=== PATIENT | female | born 1950 | race Caucasian/White ===

== ENCOUNTER 2016-12-27 01:17 | Emergency (ER) | payer MEDICARE, OTHER ==
[2016-12-27] MEDS ORDERED: VITA1CAP2 PO (01:29)
[2016-12-27 05:58] VITALS: BP 148/82
[2016-12-27] MEDS ORDERED: BACTRIM 160MG/800MG DS TAB PO ONE (06:00)
[2016-12-27] MEDS ORDERED: BACT800T5 PO (06:02)
== END 2016-12-27 06:09 | disposition home or self-care (01) ==
LOC: M ED 01:17
DX: N30.00 Acute cystitis without hematuria (principal)

== ENCOUNTER → 2017-02-28 | Outpatient (REF) | payer MEDICARE, OTHER ==
[~2017-02-28] MED LIST: BACT800T5 PO; VITA1CAP2 PO
[2017-02-28 19:08] LABS: BASO % 0.4 % (0.0-1.0); EOS # 0.1 K/mm3 (0.0-0.50); EOS % 2.5 % (0.0-3.0); LARGE UNSTAINED CELL # 0.1 K/mm3 (0.0-0.4); LARGE UNSTAINED CELL % 1.6 % (0.0-4.0); LYMPH # 1.3 K/mm3 (1.5-4.5); LYMPH % 27.3 % (24.0-44.0); MEAN CORPUSCULAR HEMOGLOBIN 29.8 pg (27.0-33.0); MEAN CORPUSCULAR VOLUME 90.1 fl (80.0-96.0); MONO # 0.3 K/mm3 (0.0-0.8); MONO % 5.8 % (0.0-5.0); NEUTROPHILS # 2.9 K/mm3 (1.8-7.7); NEUTROPHILS % 62.4 % (36.0-66.0); PLATELET COUNT, AUTOMATED 248 k/mm3 (150-450); WHITE BLOOD COUNT 4.6 K/mm3 (4.0-10.0)
[2017-02-28 19:32] LABS: ALBUMIN 3.8 GM/DL (3.2-5.2); ALBUMIN/GLOBULIN RATIO 1.15 (1.00-1.93); ALKALINE PHOSPHATASE 62 U/L (45-117); ALT/SGPT 21 U/L (12-78); ANION GAP 7 MEQ/L (8-16); AST/SGOT 12 U/L (15-37); BILIRUBIN,TOTAL 0.5 MG/DL (0.2-1.0); BLOOD UREA NITROGEN 12 MG/DL (7-18); CALCIUM LEVEL 9.4 MG/DL (8.8-10.2); CARBON DIOXIDE LEVEL 29 MEQ/L (21-32); CHLORIDE LEVEL 106 MEQ/L (98-107); CHOLESTEROL LEVEL 243 MG/DL (<200); GLOMERULAR FILTRATION RATE > 60.0 (>45); GLUCOSE, FASTING 86 MG/DL (80-110); POTASSIUM SERUM 4.3 MEQ/L (3.5-5.1); SODIUM LEVEL 142 MEQ/L (136-145); TOTAL PROTEIN 7.1 GM/DL (6.4-8.2); TRIGLYCERIDES LEVEL 145 MG/DL (<150)
== END ==
LOC: M LABDRAW1 13:11
PROVIDERS: ATTEND Physician Assistant Medical
DX: R53.83 Other fatigue (principal); E78.2 Mixed hyperlipidemia; Z13.0 Encounter for screening for diseases of the blood and blood-forming organs and certain disorders involving the immune mechanism; Z13.29 Encounter for screening for other suspected endocrine disorder; Z13.220 Encounter for screening for lipoid disorders

== ENCOUNTER → 2018-03-01 | Outpatient (CLI) | payer MEDICARE, OTHER ==
[2018-03-01 15:51] LABS: BASO % 0.8 % (0.0-1.0); EOS # 0.2 10^3/uL (0.0-0.50); EOS % 3.5 % (0.0-3.0); HEMATOCRIT 41.8 % (36.0-47.0); HEMOGLOBIN 13.8 g/dl (12.0-15.5); IMMATURE GRANULOCYTE % 0.4 % (0-3.0); LYMPH # 1.7 10^3/uL (1.5-4.5); LYMPH % 32.8 % (24.0-44.0); MEAN CORPUSCULAR HEMOGLOBIN 29.1 pg (27.0-33.0); MONO # 0.5 10^3/uL (0.0-0.8); MONO % 10.1 % (0.0-5.0); NEUTROPHILS # 2.7 10^3/uL (1.8-7.7); NEUTROPHILS % 52.4 % (36.0-66.0); PLATELET COUNT, AUTOMATED 260 10^3/uL (150-450); RED BLOOD COUNT 4.75 10^6/uL (4.00-5.40); RED CELL DISTRIBUTION WIDTH 13.5 % (11.5-14.5); WHITE BLOOD COUNT 5.2 10^3/uL (4.0-10.0)
[2018-03-01 16:10] LABS: ALBUMIN/GLOBULIN RATIO 1.08 (1.00-1.93); ALKALINE PHOSPHATASE 62 U/L (45-117); ALT/SGPT 24 U/L (12-78); ANION GAP 6 MEQ/L (8-16); AST/SGOT 14 U/L (7-37); BILIRUBIN,TOTAL 0.6 MG/DL (0.2-1.0); BLOOD UREA NITROGEN 15 MG/DL (7-18); CALCIUM LEVEL 9.5 MG/DL (8.8-10.2); CARBON DIOXIDE LEVEL 28 MEQ/L (21-32); CHLORIDE LEVEL 108 MEQ/L (98-107); CHOLESTEROL LEVEL 211 MG/DL (<200); CHOLESTEROL RISK RATIO 3.014 (<5); CREATININE FOR GFR 0.64 MG/DL (0.55-1.30); FREE T4 1.05 NG/DL (0.76-1.46); GLOMERULAR FILTRATION RATE > 60.0 (>45); GLUCOSE, FASTING 82 MG/DL (70-100); HDL CHOLESTEROL 70 MG/DL (>40); LDL CHOLESTEROL 114 MG/DL (<100); NON-HDL-C 141 MG/DL; POTASSIUM SERUM 4.9 MEQ/L (3.5-5.1); SODIUM LEVEL 142 MEQ/L (136-145); THYROID STIMULATING HORMONE 0.465 uIU/ML (0.358-3.740); TOTAL PROTEIN 7.7 GM/DL (6.4-8.2); TRIGLYCERIDES LEVEL 135 MG/DL (<150)
[2018-03-02 12:09] LABS: HEP C VIRUS AB SCREEN MEDICARE 0.2 INDEX (<0.8)
== END ==
LOC: M WUC 11:12
DX: M85.641 Other cyst of bone, right hand (principal); E78.2 Mixed hyperlipidemia; Z11.3 Encounter for screening for infections with a predominantly sexual mode of transmission
CPT/HCPCS: 84443

== ENCOUNTER → 2019-01-22 | Outpatient (CLI) | payer MEDICARE, OTHER ==
[~2019-01-22] MED LIST changes: +VITA-183 PO; -VITA1CAP2 PO
[2019-01-22 20:23] LABS: BLOOD UREA NITROGEN 16 MG/DL (7-18); CALCIUM LEVEL 8.5 MG/DL (8.8-10.2); CARBON DIOXIDE LEVEL 26 MEQ/L (21-32); CHLORIDE LEVEL 109 MEQ/L (98-107); CREATININE FOR GFR 0.72 MG/DL (0.55-1.30); GLOMERULAR FILTRATION RATE > 60.0 (>45); GLUCOSE, FASTING 99 MG/DL (70-100); POTASSIUM SERUM 4.2 MEQ/L (3.5-5.1); SODIUM LEVEL 142 MEQ/L (136-145)
== END ==
LOC: M WUC 15:55
PROVIDERS: ATTEND Family Medicine
DX: D49.2 Neoplasm of unspecified behavior of bone, soft tissue, and skin (principal)

== ENCOUNTER → 2019-02-28 | Outpatient (CLI) | payer MEDICARE, OTHER ==
[2019-02-28 18:39] LABS: BASO % 0.4 % (0.0-1.0); EOS # 0.2 10^3/uL (0.0-0.5); EOS % 2.1 % (0.0-3.0); HEMATOCRIT 41.8 % (36.0-47.0); HEMOGLOBIN 13.7 g/dl (12.0-15.5); LYMPH # 1.6 10^3/uL (1.5-5.0); LYMPH % 19.1 % (24.0-44.0); MEAN CORPUSCULAR HEMOGLOBIN 28.7 pg (27.0-33.0); MEAN CORPUSCULAR HGB CONC 32.8 g/dl (32.0-36.5); MEAN CORPUSCULAR VOLUME 87.4 fl (80.0-96.0); MONO # 0.6 10^3/uL (0.0-0.8); MONO % 7.8 % (0.0-5.0); NEUTROPHILS # 5.8 10^3/uL (1.5-8.5); NEUTROPHILS % 70.2 % (36.0-66.0); PLATELET COUNT, AUTOMATED 297 10^3/uL (150-450); RED BLOOD COUNT 4.78 10^6/uL (4.00-5.40); WHITE BLOOD COUNT 8.2 10^3/uL (4.0-10.0)
[2019-02-28 18:52] LABS: ALBUMIN 3.6 GM/DL (3.2-5.2); ALT/SGPT 19 U/L (12-78); BILIRUBIN,TOTAL 0.5 MG/DL (0.2-1.0); BLOOD UREA NITROGEN 13 MG/DL (7-18); CARBON DIOXIDE LEVEL 25 MEQ/L (21-32); CHLORIDE LEVEL 108 MEQ/L (98-107); CHOLESTEROL LEVEL 201 MG/DL (<200); CREATININE FOR GFR 0.74 MG/DL (0.55-1.30); FREE T4 1.02 NG/DL (0.76-1.46); GLOMERULAR FILTRATION RATE > 60.0 (>45); GLUCOSE, FASTING 86 MG/DL (70-100); HDL CHOLESTEROL 64 MG/DL (>40); LDL CHOLESTEROL 104 MG/DL (<100); NON-HDL-C 137 MG/DL; SODIUM LEVEL 142 MEQ/L (136-145); THYROID STIMULATING HORMONE 0.526 uIU/ML (0.358-3.740); TOTAL PROTEIN 7.2 GM/DL (6.4-8.2); TRIGLYCERIDES LEVEL 164 MG/DL (<150)
[2019-02-28 18:54] LABS: TOTAL 25(OH) VITAMIN D 22.6 NG/ML (30.0-100.0)
== END ==
LOC: M SMT 13:15
PROVIDERS: ATTEND Family Medicine
DX: E78.2 Mixed hyperlipidemia (principal); E55.9 Vitamin D deficiency, unspecified; Z79.899 Other long term (current) drug therapy

== ENCOUNTER 2019-03-17 02:26 | Emergency (ER) | payer MEDICARE, OTHER ==
[~2019-03-17] VITALS: Ht 147.3 cm; Wt 77.3 kg
[2019-03-17] MEDS ORDERED: ALPR0.25 (02:38)
[2019-03-17] MEDS ORDERED: ZOCO10TA PO (02:53)
[2019-03-17] MEDS ORDERED: LEXA1TAB PO (02:53)
[2019-03-17 03:08] LABS: BASO % 0.4 % (0.0-1.0); EOS # 0.1 10^3/uL (0.0-0.5); EOS % 1.6 % (0.0-3.0); HEMATOCRIT 41.2 % (36.0-47.0); LYMPH # 2.3 10^3/uL (1.5-5.0); LYMPH % 34.4 % (24.0-44.0); MEAN CORPUSCULAR HEMOGLOBIN 29.7 pg (27.0-33.0); MEAN CORPUSCULAR VOLUME 87.5 fl (80.0-96.0); MONO # 0.7 10^3/uL (0.0-0.8); MONO % 9.7 % (0.0-5.0); NEUTROPHILS # 3.7 10^3/uL (1.5-8.5); NEUTROPHILS % 53.6 % (36.0-66.0); PLATELET COUNT, AUTOMATED 258 10^3/uL (150-450); RED BLOOD COUNT 4.71 10^6/uL (4.00-5.40); WHITE BLOOD COUNT 6.8 10^3/uL (4.0-10.0)
[2019-03-17 03:35] LABS: ALBUMIN 3.7 GM/DL (3.2-5.2); ALT/SGPT 20 U/L (12-78); BILIRUBIN,DIRECT 0.1 MG/DL (0.0-0.2); BILIRUBIN,TOTAL 0.5 MG/DL (0.2-1.0); BLOOD UREA NITROGEN 16 MG/DL (7-18); CALCIUM LEVEL 9.4 MG/DL (8.8-10.2); CARBON DIOXIDE LEVEL 26 MEQ/L (21-32); CHLORIDE LEVEL 105 MEQ/L (98-107); CK-MB VALUE MASS 2.9 NG/ML (<3.6); CPK CREATINE PHOSPHOKINASE 198 U/L (26-192); CREATININE FOR GFR 0.72 MG/DL (0.55-1.30); GLOMERULAR FILTRATION RATE > 60.0 (>45); GLUCOSE, FASTING 94 MG/DL (70-100); LIPASE 507 U/L (73-393); MB/CK RELATIVE INDEX 1.46 (< OR =4); POTASSIUM SERUM 3.5 MEQ/L (3.5-5.1); SODIUM LEVEL 140 MEQ/L (136-145); TOTAL PROTEIN 7.6 GM/DL (6.4-8.2); TROPONIN I 0.39 NG/ML (< 0.10)
[2019-03-17] MEDS ORDERED: HEPARIN DRIP 25,000 UNITS in IV 1 EA IV SCH (03:58)
[2019-03-17] MEDS ORDERED: CLOPIDOGREL 300 MG TAB (PLAVIX) PO STA (03:58)
[2019-03-17] MEDS ORDERED: HEPARIN SOD (PORCINE) 5000 UNITS/ML VIAL IV ONE (04:00)
[2019-03-17] MEDS ORDERED: ASPIRIN 325 MG TAB PO ONE (04:00)
[2019-03-17 04:32] LABS: INR 1.01
[2019-03-17 04:33] LABS: PARTIAL THROMBOPLASTIN TIME 31.6 SECONDS (25.0-38.4)
[2019-03-17 05:00] VITALS: BP 200/98
[2019-03-17] MEDS ORDERED: NITROGLYCERIN 2% OINT 1 GM *U/D* PKT TOP ONE (05:00)
--- NOTE | 2019-03-17 05:07 | REPVR ---
PROCEDURE INFORMATION: Exam: US Duplex Left Lower Extremity Veins, Limited Exam date and time: 03/17/2019 4:41 AM Clinical history: 68 years old, female; Edema, localized; Lower extremity, left; Additional info: Titoin/hemal TECHNIQUE: Imaging protocol: Real-time Duplex ultrasound of the Left Lower Extremity with 2-D ziegler scale, color Doppler flow and spectral waveform analysis with image documentation. Limited exam focused on the left lower extremity veins. COMPARISON: US Duplex, Ext,LOWER veins,unilat LEFT 12/01/2015 2:29 PM FINDINGS: Left deep veins: Unremarkable. The common femoral, femoral, proximal profunda femoral and popliteal veins are patent without thrombus. Normal Doppler waveforms. Normal compressibility and/or augmentation response. Left superficial veins: Unremarkable. Saphenofemoral junction is patent without thrombus. Soft tissues: Unremarkable. IMPRESSION: No acute findings. No evidence of deep vein thrombosis. Electronically signed by: Max Gordon On 03/17/2019 05:06:39 AM
[2019-03-17 05:32] VITALS: BP 162/74
--- NOTE | 2019-03-18 08:01 | REP ---
AP PORTABLE CHEST: 03/17/2019. Clinical history: Chest pain. Comparison: 10/03/2011. Findings: Upright chest shows the lung caceres well inflated and without infiltrate or effusion. Some emphysematous changes in the mid and upper lung zones are suggested. There is no dense consolidation or effusion. Heart is not enlarged. The aorta is calcified and tortuous. Airway intact. Bony thorax shows no focal lesion. Dextroconvex curve in the thoracic spine. Degenerative changes in the spine and shoulders. Impression: 1. 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 Electronically Signed by Ari Rivera MD 03/18/2019 09:26 A
--- NOTE | 2019-03-18 08:24 | ECGEPIP ---
[facility] - ED Test Date: 2019-03-17 Pat Name: RUDY GIBBS Department: Room: - Gender: Female Circuit Manager: : 1950 Requested By: TIFF DIAS Order Number: [id number] Reading MD: Jerrica Marlow Measurements Intervals Overgaard Rate: 75 P: 51 GA: 100 QRS: 6 QRSD: 105 T: 48 QT: 338 QTc: 380 Interpretive Statements SINUS RHYTHM WITH SHORT GA INTERVAL POSSIBLE LEFT ATRIAL ENLARGEMENT NONSPECIFIC ST & T-WAVE ABNORMALITY NO PRIOR Electronically Signed on 03-18-2019 8:23:35 EDT by Jerrica Marlow
== END 2019-03-17 05:33 | disposition short-term general hospital (02) ==
LOC: M ED 02:26
DX: I21.4 Non-ST elevation (NSTEMI) myocardial infarction (principal); E78.5 Hyperlipidemia, unspecified; F41.9 Anxiety disorder, unspecified; J44.9 Chronic obstructive pulmonary disease, unspecified; Z79.899 Other long term (current) drug therapy; Z87.891 Personal history of nicotine dependence; Z88.0 Allergy status to penicillin; Z88.8 Allergy status to other drugs, medicaments and biological substances

== ENCOUNTER → 2019-04-09 | Outpatient (CLI) | payer MEDICARE, OTHER ==
[~2019-04-09] MED LIST changes: +ALPR0.25; +LEXA1TAB PO; +ZOCO10TA PO
[2019-04-09 14:10] LABS: BASO % 0.5 % (0.0-1.0); EOS # 0.1 10^3/uL (0.0-0.5); EOS % 2.2 % (0.0-3.0); HEMATOCRIT 41.3 % (36.0-47.0); HEMOGLOBIN 13.3 g/dl (12.0-15.5); LYMPH # 1.6 10^3/uL (1.5-5.0); LYMPH % 27.4 % (24.0-44.0); MEAN CORPUSCULAR HEMOGLOBIN 29.6 pg (27.0-33.0); MEAN CORPUSCULAR HGB CONC 32.2 g/dl (32.0-36.5); MONO # 0.5 10^3/uL (0.0-0.8); MONO % 8.6 % (0.0-5.0); NEUTROPHILS # 3.6 10^3/uL (1.5-8.5); NEUTROPHILS % 61.1 % (36.0-66.0); PLATELET COUNT, AUTOMATED 263 10^3/uL (150-450); RED BLOOD COUNT 4.49 10^6/uL (4.00-5.40); WHITE BLOOD COUNT 5.8 10^3/uL (4.0-10.0)
[2019-04-09 14:29] LABS: ALBUMIN 3.7 GM/DL (3.2-5.2); ALT/SGPT 24 U/L (12-78); BILIRUBIN,TOTAL 0.7 MG/DL (0.2-1.0); BLOOD UREA NITROGEN 12 MG/DL (7-18); CALCIUM LEVEL 9.4 MG/DL (8.8-10.2); CARBON DIOXIDE LEVEL 29 MEQ/L (21-32); CHLORIDE LEVEL 107 MEQ/L (98-107); CHOLESTEROL LEVEL 196 MG/DL (<200); FREE T4 1.04 NG/DL (0.76-1.46); GLOMERULAR FILTRATION RATE > 60.0 (>45); GLUCOSE, FASTING 89 MG/DL (70-100); HDL CHOLESTEROL 71 MG/DL (>40); LDL CHOLESTEROL 97 MG/DL (<100); NON-HDL-C 125 MG/DL; POTASSIUM SERUM 4.7 MEQ/L (3.5-5.1); SODIUM LEVEL 143 MEQ/L (136-145); THYROID STIMULATING HORMONE 0.788 uIU/ML (0.358-3.740); TOTAL PROTEIN 7.3 GM/DL (6.4-8.2); TRIGLYCERIDES LEVEL 140 MG/DL (<150)
== END ==
LOC: M SMT 10:27
PROVIDERS: ATTEND Family Medicine
DX: I21.4 Non-ST elevation (NSTEMI) myocardial infarction (principal)

== ENCOUNTER → 2019-06-20 | Outpatient (CLI) | payer MEDICARE, OTHER ==
[2019-06-20 13:40] LABS: BASO % 0.6 % (0.0-1.0); EOS # 0.2 10^3/uL (0.0-0.5); HEMATOCRIT 42.7 % (36.0-47.0); HEMOGLOBIN 13.9 g/dl (12.0-15.5); LYMPH # 1.8 10^3/uL (1.5-5.0); LYMPH % 27.6 % (24.0-44.0); MEAN CORPUSCULAR HEMOGLOBIN 29.3 pg (27.0-33.0); MEAN CORPUSCULAR HGB CONC 32.6 g/dl (32.0-36.5); MEAN CORPUSCULAR VOLUME 89.9 fl (80.0-96.0); MONO # 0.6 10^3/uL (0.0-0.8); MONO % 8.9 % (0.0-5.0); NEUTROPHILS % 59.7 % (36.0-66.0); PLATELET COUNT, AUTOMATED 256 10^3/uL (150-450); RED BLOOD COUNT 4.75 10^6/uL (4.00-5.40); WHITE BLOOD COUNT 6.6 10^3/uL (4.0-10.0)
[2019-06-20 14:01] LABS: ALBUMIN 3.8 GM/DL (3.2-5.2); ALT/SGPT 24 U/L (12-78); BILIRUBIN,TOTAL 0.6 MG/DL (0.2-1.0); BLOOD UREA NITROGEN 15 MG/DL (7-18); CALCIUM LEVEL 9.2 MG/DL (8.8-10.2); CARBON DIOXIDE LEVEL 27 MEQ/L (21-32); CHLORIDE LEVEL 107 MEQ/L (98-107); CHOLESTEROL LEVEL 221 MG/DL (<200); CHOLESTEROL RISK RATIO 3.202 (<5); CREATININE FOR GFR 0.77 MG/DL (0.55-1.30); GLOMERULAR FILTRATION RATE > 60.0 (>45); GLUCOSE, FASTING 80 MG/DL (70-100); HDL CHOLESTEROL 69 MG/DL (>40); LDL CHOLESTEROL 121 MG/DL (<100); NON-HDL-C 152 MG/DL; POTASSIUM SERUM 4.9 MEQ/L (3.5-5.1); SODIUM LEVEL 140 MEQ/L (136-145); TOTAL PROTEIN 7.3 GM/DL (6.4-8.2); TRIGLYCERIDES LEVEL 157 MG/DL (<150)
[2019-06-20 14:08] LABS: TOTAL 25(OH) VITAMIN D 31.3 NG/ML (30.0-100.0)
== END ==
LOC: M PLALAB 11:02
PROVIDERS: ATTEND Family Medicine
DX: E55.9 Vitamin D deficiency, unspecified (principal); I10 Essential (primary) hypertension; Z79.899 Other long term (current) drug therapy

== ENCOUNTER → 2019-08-28 | Outpatient (REF) | payer MEDICARE, OTHER | LOC: M LAB REF 17:32 | PROVIDERS: ATTEND Family Medicine | DX: R19.5 Other fecal abnormalities (principal) ==

== ENCOUNTER 2019-09-05 07:03 | Day surgery (SDC) | payer MEDICARE, OTHER ==
[~2019-09-05] VITALS: Ht 147.3 cm; Wt 76.7 kg
[~2019-09-05 07:03] MED LIST changes: +B-122500 PO; +LR 1,000 ML IV ONE; +MAGN250T7 PO; +METO25TA4 PO; +VITAD1000T PO
[2019-09-05 07:42] LABS: HEMATOCRIT 42.6 % (36.0-47.0); HEMOGLOBIN 13.9 g/dl (12.0-15.5); MEAN CORPUSCULAR HEMOGLOBIN 29.4 pg (27.0-33.0); MEAN CORPUSCULAR HGB CONC 32.6 g/dl (32.0-36.5); MEAN CORPUSCULAR VOLUME 90.3 fl (80.0-96.0); PLATELET COUNT, AUTOMATED 246 10^3/uL (150-450); RED BLOOD COUNT 4.72 10^6/uL (4.00-5.40); WHITE BLOOD COUNT 5.9 10^3/uL (4.0-10.0)
[2019-09-05] MEDS ORDERED: LIDOCAINE 1% SDV INJ 30 ML VIAL As Ordered ONE (09:49)
[2019-09-05] MEDS ORDERED: fentaNYL 100 MCG/2 ML INJECTION (J3010) As Ordered ONE (09:56)
[2019-09-05] MEDS ORDERED: MIDAZOLAM INJ 2 MG/2 ML VIAL (J2250) As Ordered ONE (09:56)
[2019-09-05] MEDS ORDERED: LIDOCAINE 2% INJ 100 MG/5 ML SDV (FOR ANES.) As Ordered ONE (09:56)
[2019-09-05] MEDS ORDERED: propofoL 200 MG/20 ML VIAL As Ordered ONE (09:56)
[2019-09-05] MEDS ORDERED: ePHEDrine SULFATE 25 MG/5 ML(5MG/ML) SYRINGE As Ordered ONE (10:08)
[2019-09-05] MEDS ORDERED: fentaNYL 100 MCG/2 ML INJECTION (J3010) IV PRN (10:45)
[2019-09-05] MEDS ORDERED: LR 1,000 ML IV SCH ×2 (10:45→11:45)
[2019-09-05 10:55] VITALS: BP 143/67
[2019-09-05] MEDS ORDERED: ACETAMINOPHEN 500 MG TAB PO ONE (11:45)
--- NOTE | 2019-09-05 12:27 | RO ---
DATE OF OPERATION: 09/05/2019 PREOPERATIVE DIAGNOSIS: Postmenopausal bleeding. POSTOPERATIVE DIAGNOSIS: Postmenopausal bleeding. PROCEDURES: Hysteroscopy, dilation and curettage (D and C). SURGEON: Joel Fonseca MD CONTENT MANAGEMENT SPECIALIST: ANESTHESIA: Local with sedation. ESTIMATED BLOOD LOSS: Minimal. FINDINGS: Normal-appearing endometrial cavity. DESCRIPTION OF PROCEDURE: Operative summary: The patient was taken to the operating room, where intravenous (IV) sedation given. She was prepped and draped in sterile fashion in the dorsal lithotomy position. A speculum was placed in the vagina. The anterior lip of the cervix was grasped with a tenaculum. The cervix was injected circumferentially with 20 mL of 1% lidocaine. The cervix was dilated with Taper dilators. A diagnostic hysteroscope using normal saline as the distention medium was placed through the internal os. Visualization of the endometrial cavity revealed the findings noted above. The hysteroscope was removed. Sharp curettage was performed. A specimen of endometrial curettings was sent to pathology. All instruments were removed. Sponge and instrument counts were correct.
== END 2019-09-05 11:54 | disposition home or self-care (01) ==
LOC: M SDC 07:03
PROVIDERS: ATTEND Specialist
DX: N95.0 Postmenopausal bleeding (principal); I10 Essential (primary) hypertension; E78.5 Hyperlipidemia, unspecified; I25.2 Old myocardial infarction; G47.30 Sleep apnea, unspecified; K44.9 Diaphragmatic hernia without obstruction or gangrene; M85.80 Other specified disorders of bone density and structure, unspecified site; F41.9 Anxiety disorder, unspecified; K21.9 Gastro-esophageal reflux disease without esophagitis; Z79.899 Other long term (current) drug therapy; Z88.0 Allergy status to penicillin; Z88.1 Allergy status to other antibiotic agents
CPT/HCPCS: 58558; 85027; 88305; J2250; J3010

== ENCOUNTER → 2020-01-29 | Outpatient (CLI) | payer MEDICARE, OTHER ==
[~2020-01-29] MED LIST changes: +D31000TA2 PO; -LR 1,000 ML IV ONE; -VITAD1000T PO
--- NOTE | 2020-02-28 14:52 | SLEEPCENT ---
DATE: 01/29/2020 ORDERED BY: Jesica Sifuentes Nocturnal polysomnography was performed for evaluation of sleep physiology in this patient with a prior history of obstructive sleep apnea syndrome. There was 7 hours and 44 minutes of data reviewed. There was 231 minutes of sleep identified. Sleep latency was prolonged at 158.5 minutes. REM sleep was not achieved. Sleep architecture showed severe fragmentation and poor progression. Overall sleep efficiency was 50.4%. The electrocardiogram showed what appeared to be a sinus rhythm with average heart rate of 60 beats per minute. EEG showed normal waveforms for wake and sleep. There were 237 respiratory events identified of 10 seconds in duration or greater for an apnea- hypopnea index of 61.6. The events were obstructive, not exclusive to sleep stage nor body posture. Arousals from respiratory events occurred 10.4 times per hour, and oxygen desaturations were seen into the 80s. There was some limb activity, but arousals primarily related to limb events were few. IMPRESSION: Obstructive sleep apnea syndrome (G47.33). Apnea-hypopnea index 61.6. RECOMMENDATION: The patient should be encouraged to return to the sleep disorder center at his earlier convenience for pressure therapy. In the interim, alcohol and sedative avoidance should be practiced and caution exercised during the operation of motor vehicles. LUCIAD
== END ==
LOC: M SLEEP 20:00
PROVIDERS: ATTEND Nurse Practitioner Adult Health
DX: G47.33 Obstructive sleep apnea (adult) (pediatric) (principal)

== ENCOUNTER → 2020-02-19 | Outpatient (CLI) | payer MEDICARE, OTHER ==
--- NOTE | 2020-02-22 08:55 | SLEEPCENT ---
DATE: 02/19/2020 ORDERED BY: Jesica Sifuentes Nocturnal polysomnography was performed in an effort to titrate pressure therapy in this patient with severe obstructive sleep apnea syndrome, apnea-hypopnea index 61.6. For testing, a ResMed Mirage FX nasal mask of standard size was used. There was 4 cm of water pressure applied to the circuit, and the lights were extinguished. There was 7 hours and 23 minutes of data reviewed. There was 259 minutes of sleep identified. Sleep latency was prolonged at 94.5 minutes. REM latency was very prolonged at 310.5 minutes. Sleep architecture was poor. There was one REM cycle late in the study. Overall sleep efficiency was 59.1%. The patient's electrocardiogram showed a sinus rhythm with occasional premature ventricular contraction (PVC). The average heart rate 58 beats per minute. EEG showed coarsening in background, otherwise normal waveforms for wake and sleep. There were no focal events. Respiratory events were fully palliated with CPAP at a pressure of +5. Early in the study the patient had very frequent arousals, which appeared to be related to limb activity. Limb movement arousal index calculates at 40.5. IMPRESSION: 1. Obstructive sleep apnea syndrome (G47.33). 2. Possible periodic limb movement disorder (G47.61). Limb movement arousal index 40.5. RECOMMENDATION: Initiation of CPAP at a pressure of 5 cm would appear to be sufficient to overcome airway obstruction. Given the severity of the patient's disease, close clinical followup is recommended. Should sleep symptoms persist, re-evaluation of the efficacy of pressure therapy would be prudent, and consideration could be given to interventions to reduce the frequency of arousal from the limb events identified early in the study. MARIBELL
== END ==
LOC: M SLEEP 20:00
PROVIDERS: ATTEND Nurse Practitioner Adult Health
DX: G47.33 Obstructive sleep apnea (adult) (pediatric) (principal)

== ENCOUNTER → 2020-03-04 | Outpatient (CLI) | payer MEDICARE, OTHER ==
[2020-03-04 13:37] LABS: BASO % 0.8 % (0.0-1.0); EOS # 0.2 10^3/uL (0.0-0.5); EOS % 4.5 % (0.0-3.0); HEMATOCRIT 41.9 % (36.0-47.0); HEMOGLOBIN 13.5 g/dl (12.0-15.5); LYMPH # 1.7 10^3/uL (1.5-5.0); LYMPH % 31.5 % (24.0-44.0); MEAN CORPUSCULAR HEMOGLOBIN 29.7 pg (27.0-33.0); MEAN CORPUSCULAR HGB CONC 32.2 g/dl (32.0-36.5); MEAN CORPUSCULAR VOLUME 92.3 fl (80.0-96.0); MONO # 0.5 10^3/uL (0.0-0.8); MONO % 10.2 % (0.0-5.0); NEUTROPHILS # 2.8 10^3/uL (1.5-8.5); NEUTROPHILS % 52.6 % (36.0-66.0); PLATELET COUNT, AUTOMATED 245 10^3/uL (150-450); RED BLOOD COUNT 4.54 10^6/uL (4.00-5.40); WHITE BLOOD COUNT 5.3 10^3/uL (4.0-10.0)
[2020-03-04 13:57] LABS: ALBUMIN 3.5 GM/DL (3.2-5.2); ALT/SGPT 24 U/L (12-78); BILIRUBIN,TOTAL 0.6 MG/DL (0.2-1.0); BLOOD UREA NITROGEN 16 MG/DL (7-18); CALCIUM LEVEL 9.1 MG/DL (8.8-10.2); CARBON DIOXIDE LEVEL 29 MEQ/L (21-32); CHLORIDE LEVEL 108 MEQ/L (98-107); CHOLESTEROL LEVEL 231 MG/DL (<200); CHOLESTEROL RISK RATIO 3.447 (<5); CREATININE FOR GFR 0.66 MG/DL (0.55-1.30); GLOMERULAR FILTRATION RATE > 60.0 (>39); GLUCOSE, FASTING 84 MG/DL (70-100); HDL CHOLESTEROL 67 MG/DL (>40); LDL CHOLESTEROL 130 MG/DL (<100); NON-HDL-C 164 MG/DL; POTASSIUM SERUM 3.9 MEQ/L (3.5-5.1); SODIUM LEVEL 141 MEQ/L (136-145); TOTAL 25(OH) VITAMIN D 29.4 NG/ML (30.0-100.0); TOTAL PROTEIN 7.1 GM/DL (6.4-8.2); TRIGLYCERIDES LEVEL 169 MG/DL (<150)
== END ==
LOC: M PLALAB 10:03
PROVIDERS: ATTEND Family Medicine
DX: E55.9 Vitamin D deficiency, unspecified (principal); I10 Essential (primary) hypertension; Z79.899 Other long term (current) drug therapy

== ENCOUNTER → 2021-04-02 | Outpatient (CLI) | payer MEDICARE, OTHER ==
[2021-04-02 14:19] LABS: BASO % 0.5 % (0.0-1.0); EOS # 0.2 10^3/uL (0.0-0.5); EOS % 3.6 % (0.0-3.0); HEMATOCRIT 42.1 % (36.0-47.0); HEMOGLOBIN 13.7 g/dl (12.0-15.5); LYMPH # 1.6 10^3/uL (1.5-5.0); LYMPH % 27.2 % (24.0-44.0); MEAN CORPUSCULAR HEMOGLOBIN 29.1 pg (27.0-33.0); MEAN CORPUSCULAR HGB CONC 32.5 g/dl (32.0-36.5); MEAN CORPUSCULAR VOLUME 89.6 fl (80.0-96.0); MONO # 0.5 10^3/uL (0.0-0.8); MONO % 9.2 % (2.0-8.0); NEUTROPHILS # 3.5 10^3/uL (1.5-8.5); NEUTROPHILS % 59.2 % (36.0-66.0); PLATELET COUNT, AUTOMATED 259 10^3/uL (150-450); WHITE BLOOD COUNT 5.9 10^3/uL (4.0-10.0)
[2021-04-02 14:40] LABS: APPEARANCE, URINE CLEAR (CLEAR); BACTERIA, URINE AUTO NEGATIVE (NEGATIVE); BILIRUBIN, URINE AUTO NEGATIVE (NEGATIVE); BLOOD, URINE BLOOD 2+ (NEGATIVE); COLOR, URINE YELLOW (YELLOW); GLUCOSE, URINE (UA) AUTO NEGATIVE (NEGATIVE); KETONE, URINE AUTO NEGATIVE (NEGATIVE); LEUKOCYTE ESTERASE, URINE AUTO NEGATIVE (NEGATIVE); MUCUS, URINE SMALL (NEGATIVE); NITRITE, URINE AUTO NEGATIVE (NEGATIVE); PROTEIN, URINE AUTO NEGATIVE (NEGATIVE); RBC, URINE AUTO 10 /HPF (0-3); SPECIFIC GRAVITY URINE AUTO 1.021 (1.002-1.035); SQUAMOUS EPITHELIAL CELL UR AU 1 /HPF (0-6); UROBILINOGEN, URINE AUTO 0.2 mg/dL (0.0-2.0); WBC, URINE AUTO 2 /HPF (0-3)
[2021-04-02 14:52] LABS: ALBUMIN 3.4 GM/DL (3.2-5.2); ALT/SGPT 18 U/L (12-78); BILIRUBIN,TOTAL 0.5 MG/DL (0.2-1.0); BLOOD UREA NITROGEN 17 MG/DL (7-18); CALCIUM LEVEL 9.5 MG/DL (8.8-10.2); CARBON DIOXIDE LEVEL 27 MEQ/L (21-32); CHLORIDE LEVEL 108 MEQ/L (98-107); CHOLESTEROL LEVEL 199 MG/DL (<200); CHOLESTEROL RISK RATIO 3.431 (<5); CREATININE FOR GFR 0.68 MG/DL (0.55-1.30); FREE T4 0.99 NG/DL (0.76-1.46); GLOMERULAR FILTRATION RATE > 60.0 (>39); GLUCOSE, FASTING 87 MG/DL (70-100); HDL CHOLESTEROL 58 MG/DL (>40); LDL CHOLESTEROL 108 MG/DL (<100); NON-HDL-C 141 MG/DL; POTASSIUM SERUM 4.3 MEQ/L (3.5-5.1); SODIUM LEVEL 139 MEQ/L (136-145); TOTAL PROTEIN 6.9 GM/DL (6.4-8.2); TRIGLYCERIDES LEVEL 165 MG/DL (<150)
[2021-04-02 14:53] LABS: TOTAL 25(OH) VITAMIN D 31.9 NG/ML (30.0-100.0)
== END ==
LOC: M PLALAB 10:39
PROVIDERS: ATTEND Family Medicine
DX: I25.2 Old myocardial infarction (principal); I10 Essential (primary) hypertension; E55.9 Vitamin D deficiency, unspecified; R30.0 Dysuria; Z79.899 Other long term (current) drug therapy

== ENCOUNTER → 2021-04-07 | Outpatient (REF) | payer MEDICARE, OTHER ==
[2021-04-07 18:03] LABS: APPEARANCE, URINE CLEAR (CLEAR); BACTERIA, URINE AUTO NEGATIVE (NEGATIVE); BILIRUBIN, URINE AUTO NEGATIVE (NEGATIVE); BLOOD, URINE BLOOD 2+ (NEGATIVE); COLOR, URINE YELLOW (YELLOW); GLUCOSE, URINE (UA) AUTO NEGATIVE (NEGATIVE); KETONE, URINE AUTO NEGATIVE (NEGATIVE); LEUKOCYTE ESTERASE, URINE AUTO NEGATIVE (NEGATIVE); NITRITE, URINE AUTO NEGATIVE (NEGATIVE); PROTEIN, URINE AUTO NEGATIVE (NEGATIVE); RBC, URINE AUTO 5 /HPF (0-3); SPECIFIC GRAVITY URINE AUTO 1.016 (1.002-1.035); SQUAMOUS EPITHELIAL CELL UR AU 0 /HPF (0-6); UROBILINOGEN, URINE AUTO 0.2 mg/dL (0.0-2.0); WBC, URINE AUTO 0 /HPF (0-3)
== END ==
LOC: M LAB REF 17:19
PROVIDERS: ATTEND Family Medicine
DX: R30.0 Dysuria (principal)

== ENCOUNTER → 2021-04-12 | Outpatient (CLI) | payer MEDICARE, OTHER ==
--- NOTE | 2021-04-12 14:21 | REPMRS ---
Patient History The patient states she has not had a clinical breast exam in over a year. Patient is postmenopausal and has history of other cancer at age 70. No known family history of cancer. Patient states no breast complaints today. Patient has signed MRS History Sheet. Digital Woman Screen Mammo: April 12, 2021 - Exam #: [id number] Bilateral CC and MLO view(s) were taken. Technologist: Monica Orellana, Technologist Prior study comparison: April 09, 2018, bilateral digital mammo screening bilat, performed at [facility]. April 05, 2017, bilateral digital mammo screening bilat, performed at [facility]. FINDINGS: There are scattered fibroglandular densities. Screening. Digital screening (2D) mammography was performed bilaterally in the CC and MLO projections. Additionally, breast tomosynthesis (3D mammography) was performed bilaterally in the CC and MLO projections. Todays exam was compared to the prior exam/exams. By history, the patient has no complaints of a palpable breast abnormality or other significant breast complaints. The Volpara volumetric breast density category is B, there are scattered areas of fibroglandular densities. The breasts are unchanged in size and shape. There are no kristie-soft tissue densities or spiculated masses. There is no internal architectural distortion. There are no suspicious kristie-calcific clusters. Skin thickening or nipple retraction is not present. IMPRESSION: BI-RADS Category 2- Benign Findings. There is no evidence of malignant alteration of the breasts. Followup examination recommended in one year. The lifetime Tyrer-Cuzick score is 4.1% This mammogram was read with the assistance of [employer],an FDA approved computer aided detection system for mammography. Negative x-ray reports should not delay surgical consultation if a dominant or clinically suspicious mass is present. Not all breast cancers can be identified by mammography. Therefore, we recommend that you continue to perform regular breast self-examination and physical examination and then promptly contact your physician of any concerns or changes. Adenosis and dense breasts may obscure an underlying neoplasm. No significant changes when compared with prior studies. Assessment: BI-RADS/ACR category 2 mammogram. Benign Findings. Recommendation Routine screening mammogram of both breasts in 1 year. Electronically Signed By: Sarabjit Silverio MD 04/12/21 [id number]
== END ==
LOC: M WHC 12:38
PROVIDERS: ATTEND Family Medicine
DX: Z12.31 Encounter for screening mammogram for malignant neoplasm of breast (principal); Z78.0 Asymptomatic menopausal state; Z85.9 Personal history of malignant neoplasm, unspecified

== ENCOUNTER → 2022-01-20 | Outpatient (REF) | payer MEDICARE, OTHER ==
[~2022-01-20] MED LIST changes: -D31000TA2 PO; +SIMV-252 PO; +VITA100093 PO; -ZOCO10TA PO
[2022-01-20 17:41] LABS: APPEARANCE, URINE CLEAR (CLEAR); BACTERIA, URINE AUTO NEGATIVE (NEGATIVE); BILIRUBIN, URINE AUTO NEGATIVE (NEGATIVE); BLOOD, URINE BLOOD 1+ (NEGATIVE); COLOR, URINE YELLOW (YELLOW); GLUCOSE, URINE (UA) AUTO NEGATIVE (NEGATIVE); KETONE, URINE AUTO NEGATIVE (NEGATIVE); LEUKOCYTE ESTERASE, URINE AUTO NEGATIVE (NEGATIVE); MUCUS, URINE SMALL (NEGATIVE); NITRITE, URINE AUTO NEGATIVE (NEGATIVE); PROTEIN, URINE AUTO NEGATIVE (NEGATIVE); RBC, URINE AUTO 7 /HPF (0-3); SPECIFIC GRAVITY URINE AUTO 1.017 (1.002-1.035); SQUAMOUS EPITHELIAL CELL UR AU 0 /HPF (0-6); UROBILINOGEN, URINE AUTO 0.2 mg/dL (0.0-2.0); WBC, URINE AUTO 0 /HPF (0-3)
== END ==
LOC: M SMT 16:44
PROVIDERS: ATTEND Physician Assistant
DX: R31.9 Hematuria, unspecified (principal)

== ENCOUNTER → 2022-01-25 | Outpatient (CLI) | payer MEDICARE, OTHER ==
[2022-01-25 13:56] LABS: BLOOD UREA NITROGEN 14 MG/DL (7-18); CALCIUM LEVEL 9.5 MG/DL (8.8-10.2); CARBON DIOXIDE LEVEL 29 MEQ/L (21-32); CHLORIDE LEVEL 110 MEQ/L (98-107); CREATININE FOR GFR 0.64 MG/DL (0.55-1.30); GLOMERULAR FILTRATION RATE > 60.0 (>39); GLUCOSE, FASTING 86 MG/DL (70-100); POTASSIUM SERUM 5.6 MEQ/L (3.5-5.1); SODIUM LEVEL 143 MEQ/L (136-145)
== END ==
LOC: M PLALAB 11:04
PROVIDERS: ATTEND Physician Assistant
DX: R31.9 Hematuria, unspecified (principal)

== ENCOUNTER → 2022-01-28 | Outpatient (REF) | payer MEDICARE, OTHER ==
[2022-01-28 17:56] LABS: APPEARANCE, URINE MANUAL CLEAR (CLEAR); COLOR, URINE MANUAL LT YELLOW (YELLOW)
[2022-01-28 17:57] LABS: BILIRUBIN, URINE MANUAL NEGATIVE (NEGATIVE); GLUCOSE, URINE (UA) MANUAL NEGATIVE (NEGATIVE); KETONE, URINE MANUAL NEGATIVE (NEGATIVE); PROTEIN, URINE MANUAL NEGATIVE (NEGATIVE); UROBILINOGEN, URINE MANUAL NORMAL (NORMAL)
[2022-01-28 17:58] LABS: BLOOD URINE MANUAL POSITIVE (NEGATIVE); LEUKOCYTE ESTERASE, URINE MAN NEGATIVE (NEGATIVE); NITRITE, URINE MANUAL NEGATIVE (NEGATIVE)
[2022-01-28 18:09] LABS: BACTERIA, URINE NONE SEEN; HYALINE CAST, URINE NONE SEEN /lpf (0-1); RBC, URINE NONE SEEN /hpf (0-3); SQUAMOUS EPITHELIAL CELL URINE NONE SEEN /hpf (SMALL AMT); WBC, URINE NONE SEEN /hpf (0-3)
== END ==
LOC: M SMT 16:50
PROVIDERS: ATTEND Urology
DX: R31.29 Other microscopic hematuria (principal)

== ENCOUNTER → 2022-02-17 | Outpatient (CLI) | payer MEDICARE, OTHER ==
[2022-02-17 17:39] LABS: BASO % 0.7 % (0.0-1.0); EOS # 0.2 10^3/uL (0.0-0.5); EOS % 2.9 % (0.0-3.0); HEMATOCRIT 41.3 % (36.0-47.0); HEMOGLOBIN 13.6 g/dl (12.0-15.5); LYMPH # 1.7 10^3/uL (1.5-5.0); LYMPH % 28.8 % (24.0-44.0); MEAN CORPUSCULAR HEMOGLOBIN 29.7 pg (27.0-33.0); MEAN CORPUSCULAR HGB CONC 32.9 g/dl (32.0-36.5); MEAN CORPUSCULAR VOLUME 90.2 fl (80.0-96.0); MONO # 0.5 10^3/uL (0.0-0.8); MONO % 8.9 % (2.0-8.0); NEUTROPHILS # 3.4 10^3/uL (1.5-8.5); NEUTROPHILS % 58.5 % (36.0-66.0); PLATELET COUNT, AUTOMATED 243 10^3/uL (150-450); RED BLOOD COUNT 4.58 10^6/uL (4.00-5.40); WHITE BLOOD COUNT 5.8 10^3/uL (4.0-10.0)
[2022-02-17 20:15] LABS: TOTAL 25(OH) VITAMIN D 28.9 NG/ML (30.0-100.0)
[2022-02-22 23:07] LABS: IgG P18 AB Absent (.); IgG P23 AB Absent (.); IgG P28 AB Absent (.); IgG P30 AB Absent (.); IgG P39 AB Absent (.); IgG P41 AB Absent (.); IgG P45 AB Absent (.); IgG P66 AB Absent (.); IgG P93 AB Absent (.); IgM P23 AB Absent (.); IgM P39 AB Absent (.); IgM P41 AB Absent (.); LYME IgG WB INTERPRETATION Negative (.); LYME IgM WB INTERPRETATION Negative (.)
== END ==
LOC: M PLALAB 14:37
PROVIDERS: ATTEND Family Medicine
DX: R20.2 Paresthesia of skin (principal); Z79.899 Other long term (current) drug therapy

== ENCOUNTER → 2022-02-23 | Outpatient (REF) | payer MEDICARE, OTHER | LOC: M PLALAB 15:01 | PROVIDERS: ATTEND Family Medicine | DX: R20.2 Paresthesia of skin (principal) ==

== ENCOUNTER → 2022-03-22 | Outpatient (REF) | payer MEDICARE, OTHER | LOC: M LAB REF 17:30 | PROVIDERS: ATTEND Family Medicine | DX: N76.0 Acute vaginitis (principal) ==

== ENCOUNTER → 2022-03-26 | Outpatient (CLI) | payer MEDICARE, OTHER ==
[2022-03-26 13:54] LABS: BLOOD UREA NITROGEN 15 MG/DL (7-18); C REACTIVE PROTEIN QUANTITATIV 0.51 MG/DL (0.00-0.30); CREATININE FOR GFR 0.71 MG/DL (0.55-1.30); GLOMERULAR FILTRATION RATE > 60.0 (>39); RHEUMATOID FACTOR QUANT < 10.0 IU/ML (<15.0)
[2022-03-29 12:09] LABS: ANTINUCLEAR ANTIBODIES DIRECT Negative (Negative)
== END ==
LOC: M LAB 12:47
PROVIDERS: ATTEND Physical Medicine & Rehabilitation
DX: M51.36 Other intervertebral disc degeneration, lumbar region (principal)

== ENCOUNTER → 2022-04-11 | Outpatient (CLI) | payer MEDICARE, OTHER ==
[2022-04-11 13:03] LABS: BASO % 0.5 % (0.0-1.0); EOS # 0.1 10^3/uL (0.0-0.5); EOS % 1.9 % (0.0-3.0); HEMATOCRIT 40.3 % (36.0-47.0); HEMOGLOBIN 13.3 g/dl (12.0-15.5); LYMPH # 1.8 10^3/uL (1.5-5.0); MEAN CORPUSCULAR HEMOGLOBIN 29.5 pg (27.0-33.0); MEAN CORPUSCULAR VOLUME 89.4 fl (80.0-96.0); MONO # 0.5 10^3/uL (0.0-0.8); MONO % 8.7 % (2.0-8.0); NEUTROPHILS # 3.3 10^3/uL (1.5-8.5); NEUTROPHILS % 57.7 % (36.0-66.0); PLATELET COUNT, AUTOMATED 247 10^3/uL (150-450); RED BLOOD COUNT 4.51 10^6/uL (4.00-5.40); WHITE BLOOD COUNT 5.8 10^3/uL (4.0-10.0)
[2022-04-11 13:52] LABS: ALBUMIN 3.4 GM/DL (3.2-5.2); ALKALINE PHOSPHATASE 72 U/L (45-117); ALT/SGPT 19 U/L (12-78); AST/SGOT 11 U/L (7-37); BILIRUBIN,TOTAL 0.7 MG/DL (0.2-1.0); BLOOD UREA NITROGEN 14 MG/DL (7-18); CALCIUM LEVEL 9.2 MG/DL (8.8-10.2); CARBON DIOXIDE LEVEL 29 MEQ/L (21-32); CHLORIDE LEVEL 105 MEQ/L (98-107); CHOLESTEROL LEVEL 202 MG/DL (<200); CREATININE FOR GFR 0.64 MG/DL (0.55-1.30); GLOMERULAR FILTRATION RATE > 60.0 (>39); GLUCOSE, FASTING 93 MG/DL (70-100); HDL CHOLESTEROL 66 MG/DL (>40); LDL CHOLESTEROL 111 MG/DL (<100); NON-HDL-C 136 MG/DL; POTASSIUM SERUM 4.1 MEQ/L (3.5-5.1); SODIUM LEVEL 137 MEQ/L (136-145); THYROID STIMULATING HORMONE 0.775 uIU/ML (0.358-3.740); TOTAL PROTEIN 7.3 GM/DL (6.4-8.2); TRIGLYCERIDES LEVEL 126 MG/DL (<150)
[2022-04-11 14:24] LABS: TOTAL 25(OH) VITAMIN D 30.7 NG/ML (30.0-100.0)
== END ==
LOC: M LAB 12:04
PROVIDERS: ATTEND Family Medicine
DX: E55.9 Vitamin D deficiency, unspecified (principal); I10 Essential (primary) hypertension; E78.2 Mixed hyperlipidemia; Z79.899 Other long term (current) drug therapy

== ENCOUNTER → 2022-04-11 | Outpatient (CLI) | payer MEDICARE, OTHER | LOC: M LAB 12:00 | PROVIDERS: ATTEND Physical Medicine & Rehabilitation | DX: M51.36 Other intervertebral disc degeneration, lumbar region (principal); M47.896 Other spondylosis, lumbar region ==

== ENCOUNTER → 2022-05-17 | Outpatient (CLI) | payer MEDICARE, OTHER | LOC: M WHC 15:25 | PROVIDERS: ATTEND Nurse Practitioner Adult Health | DX: Z12.31 Encounter for screening mammogram for malignant neoplasm of breast (principal) ==

== ENCOUNTER 2022-06-03 14:24 | Emergency (ER) | payer MEDICARE, OTHER ==
[~2022-06-03] VITALS: Ht 147.3 cm; Wt 75.9 kg
[2022-06-03 18:01] VITALS: BP 151/68
== END 2022-06-03 18:01 | disposition home or self-care (01) ==
LOC: M ED 14:24
DX: S93.402A Sprain of unspecified ligament of left ankle, initial encounter (principal); X50.1XXA Overexertion from prolonged static or awkward postures, initial encounter; Y92.099 Unspecified place in other non-institutional residence as the place of occurrence of the external cause; M77.32 Calcaneal spur, left foot; Z79.899 Other long term (current) drug therapy; Z88.0 Allergy status to penicillin; Z88.1 Allergy status to other antibiotic agents; Z88.8 Allergy status to other drugs, medicaments and biological substances

== ENCOUNTER 2022-08-10 00:51 | Emergency (ER) | payer MEDICARE, OTHER ==
[~2022-08-10] VITALS: Ht 147.3 cm; Wt 74.8 kg
[2022-08-10 00:55] VITALS: BP 142/65
[2022-08-10 03:53] LABS: BASO % 0.5 % (0.0-1.0); EOS # 0.1 10^3/uL (0.0-0.5); EOS % 1.6 % (0.0-3.0); HEMATOCRIT 39.5 % (36.0-47.0); HEMOGLOBIN 12.9 g/dl (12.0-15.5); LYMPH # 2.4 10^3/uL (1.5-5.0); LYMPH % 28.4 % (24.0-44.0); MEAN CORPUSCULAR HEMOGLOBIN 29.2 pg (27.0-33.0); MEAN CORPUSCULAR HGB CONC 32.7 g/dl (32.0-36.5); MEAN CORPUSCULAR VOLUME 89.4 fl (80.0-96.0); MONO # 0.6 10^3/uL (0.0-0.8); MONO % 7.4 % (2.0-8.0); NEUTROPHILS # 5.1 10^3/uL (1.5-8.5); NEUTROPHILS % 61.9 % (36.0-66.0); PLATELET COUNT, AUTOMATED 262 10^3/uL (150-450); RED BLOOD COUNT 4.42 10^6/uL (4.00-5.40); WHITE BLOOD COUNT 8.3 10^3/uL (4.0-10.0)
[2022-08-10 04:18] LABS: INR 0.91; PROTHROMBIN TIME 12.4 SECONDS (12.5-14.5)
[2022-08-10 04:19] LABS: PARTIAL THROMBOPLASTIN TIME 30.9 SECONDS (24.8-34.2)
[2022-08-10 04:35] LABS: BLOOD UREA NITROGEN 17 MG/DL (9-23); CALCIUM LEVEL 9.3 MG/DL (8.3-10.6); CARBON DIOXIDE LEVEL 28 MMOL/L (20-31); CHLORIDE LEVEL 104 MMOL/L (98-107); CREATININE FOR GFR 0.56 MG/DL (0.55-1.30); GLOMERULAR FILTRATION RATE > 60.0 (>39); GLUCOSE, FASTING 89 MG/DL (74-106); POTASSIUM SERUM 4.2 MMOL/L (3.5-5.1); SODIUM LEVEL 138 MMOL/L (136-145)
== END 2022-08-10 06:48 | disposition home or self-care (01) ==
LOC: M ED 00:51
DX: R31.9 Hematuria, unspecified (principal); N20.0 Calculus of kidney; N28.1 Cyst of kidney, acquired; Z87.442 Personal history of urinary calculi; Z87.891 Personal history of nicotine dependence; Z79.899 Other long term (current) drug therapy; Z88.0 Allergy status to penicillin; Z88.8 Allergy status to other drugs, medicaments and biological substances

== ENCOUNTER → 2022-09-01 | Outpatient (REF) | payer MEDICARE, OTHER ==
[2022-09-01 17:14] LABS: BASO % 0.4 % (0.0-1.0); EOS # 0.1 10^3/uL (0.0-0.5); EOS % 1.4 % (0.0-3.0); HEMOGLOBIN 14.4 g/dl (12.0-15.5); LYMPH # 1.9 10^3/uL (1.5-5.0); LYMPH % 21.1 % (24.0-44.0); MEAN CORPUSCULAR VOLUME 90.7 fl (80.0-96.0); MONO # 0.6 10^3/uL (0.0-0.8); MONO % 6.3 % (2.0-8.0); NEUTROPHILS # 6.4 10^3/uL (1.5-8.5); NEUTROPHILS % 70.6 % (36.0-66.0); PLATELET COUNT, AUTOMATED 350 10^3/uL (150-450); RED BLOOD COUNT 4.96 10^6/uL (4.00-5.40); WHITE BLOOD COUNT 9.1 10^3/uL (4.0-10.0)
[2022-09-01 17:17] LABS: APPEARANCE, URINE CLEAR (CLEAR); BACTERIA, URINE AUTO 1+ (NEGATIVE); BILIRUBIN, URINE AUTO NEGATIVE (NEGATIVE); BLOOD, URINE BLOOD 1+ (NEGATIVE); COLOR, URINE STRAW (YELLOW); GLUCOSE, URINE (UA) AUTO NEGATIVE (NEGATIVE); KETONE, URINE AUTO NEGATIVE (NEGATIVE); LEUKOCYTE ESTERASE, URINE AUTO NEGATIVE (NEGATIVE); MUCUS, URINE SMALL (NEGATIVE); NITRITE, URINE AUTO NEGATIVE (NEGATIVE); PROTEIN, URINE AUTO NEGATIVE (NEGATIVE); RBC, URINE AUTO 0 /HPF (0-3); SPECIFIC GRAVITY URINE AUTO 1.009 (1.002-1.035); SQUAMOUS EPITHELIAL CELL UR AU 0 /HPF (0-6); UROBILINOGEN, URINE AUTO 0.2 mg/dL (0.0-2.0); WBC, URINE AUTO 0 /HPF (0-3)
[2022-09-01 17:19] LABS: ALKALINE PHOSPHATASE 75 U/L (46-116); ALT/SGPT 22 U/L (7.0-40); AST/SGOT 17 U/L (<34); BILIRUBIN,TOTAL 0.7 MG/DL (0.3-1.2); BLOOD UREA NITROGEN 16 MG/DL (9-23); C REACTIVE PROTEIN QUANTITATIV < 0.40 MG/DL (<1.0); CALCIUM LEVEL 9.4 MG/DL (8.3-10.6); CARBON DIOXIDE LEVEL 28 MMOL/L (20-31); CHLORIDE LEVEL 104 MMOL/L (98-107); CPK CREATINE PHOSPHOKINASE 95 U/L (34-145); CREATININE FOR GFR 0.57 MG/DL (0.55-1.30); GLOMERULAR FILTRATION RATE > 60.0 (>39); GLUCOSE, FASTING 83 MG/DL (74-106); LDH LACTATE DEHYDROGENASE 180 U/L (120-246); POTASSIUM SERUM 4.1 MMOL/L (3.5-5.1); SODIUM LEVEL 139 MMOL/L (136-145); TOTAL PROTEIN 7.6 G/DL (5.7-8.2)
[2022-09-01 17:20] LABS: COMPLEMENT C3 131.8 MG/DL (90.0-170.0); COMPLEMENT C4 41.1 MG/DL (12-36)
[2022-09-01 17:39] LABS: ERYTHROCYTE SEDIMENTATION RATE 45 mm/hr (0-30)
[2022-09-01 17:43] LABS: CREATININE,RANDOM URINE 35.9 MG/DL
[2022-09-01 17:51] LABS: TOTAL PROTEIN,RANDOM URINE < 6.0 MG/DL (0.0-14.0)
[2022-09-05 23:07] LABS: COMPLEMENT TOTAL (CH50) > 60 U/mL (>41); CYCLIC CITRULLINATED PEPTIDE 3 units (0-19); SSA SJOGRENS A <0.2 AI (0.0-0.9); SSB SJOGRENS B <0.2 AI (0.0-0.9)
== END ==
LOC: M SFHCRHEU 14:31
PROVIDERS: ATTEND Internal Medicine Rheumatology
DX: R68.2 Dry mouth, unspecified (principal); N02.9 Recurrent and persistent hematuria with unspecified morphologic changes; L65.9 Nonscarring hair loss, unspecified

== ENCOUNTER → 2022-10-31 | Outpatient (CLI) | payer MEDICARE, OTHER | LOC: M PLAIMG 14:39 | PROVIDERS: ATTEND Internal Medicine Rheumatology | DX: M25.50 Pain in unspecified joint (principal); M19.072 Primary osteoarthritis, left ankle and foot; M77.31 Calcaneal spur, right foot; R68.2 Dry mouth, unspecified; N02.9 Recurrent and persistent hematuria with unspecified morphologic changes; L65.9 Nonscarring hair loss, unspecified; M18.0 Bilateral primary osteoarthritis of first carpometacarpal joints; M19.041 Primary osteoarthritis, right hand; M19.042 Primary osteoarthritis, left hand ==

== ENCOUNTER 2022-12-07 12:12 | Day surgery (SDC) | payer MEDICARE, OTHER ==
[~2022-12-07] VITALS: Ht 147.3 cm; Wt 73.0 kg
[~2022-12-07 12:12] MED LIST changes: +CITA20TA7 PO; +GRAP50CA3 PO; +MULT1CHW44 PO; +NS 1,000 ML IV ONE; +curamed PO
[2022-12-07 15:15] VITALS: BP 134/67; O2SAT 98
== END 2022-12-07 15:22 | disposition home or self-care (01) ==
LOC: M OPP 12:12
PROVIDERS: ATTEND Internal Medicine Gastroenterology
DX: Z12.11 Encounter for screening for malignant neoplasm of colon (principal); K64.0 First degree hemorrhoids; K57.30 Diverticulosis of large intestine without perforation or abscess without bleeding; Z87.891 Personal history of nicotine dependence; Z79.899 Other long term (current) drug therapy; Z88.0 Allergy status to penicillin; Z88.1 Allergy status to other antibiotic agents

== ENCOUNTER → 2022-12-13 | Outpatient (CLI) | payer MEDICARE, OTHER ==
[~2022-12-13] MED LIST changes: -NS 1,000 ML IV ONE
== END ==
LOC: M WHC 15:05
PROVIDERS: ATTEND Specialist
DX: N95.0 Postmenopausal bleeding (principal)

== ENCOUNTER → 2023-01-20 | Outpatient (CLI) | payer MEDICARE, OTHER ==
[2023-01-20 15:58] LABS: BASO % 0.4 % (0.0-1.0); EOS # 0.2 10^3/uL (0.0-0.5); EOS % 2.1 % (0.0-3.0); HEMATOCRIT 40.4 % (36.0-47.0); HEMOGLOBIN 13.2 g/dl (12.0-15.5); LYMPH # 1.6 10^3/uL (1.5-5.0); LYMPH % 22.8 % (24.0-44.0); MEAN CORPUSCULAR HEMOGLOBIN 29.4 pg (27.0-33.0); MEAN CORPUSCULAR HGB CONC 32.7 g/dl (32.0-36.5); MONO # 0.7 10^3/uL (0.0-0.8); MONO % 9.6 % (2.0-8.0); NEUTROPHILS # 4.5 10^3/uL (1.5-8.5); NEUTROPHILS % 64.8 % (36.0-66.0); PLATELET COUNT, AUTOMATED 228 10^3/uL (150-450); RED BLOOD COUNT 4.49 10^6/uL (4.00-5.40)
[2023-01-20 16:16] LABS: ALBUMIN 3.7 G/DL (3.2-5.2); ALKALINE PHOSPHATASE 64 U/L (46-116); ALT/SGPT 16 U/L (7.0-40); AST/SGOT 11 U/L (<34); BILIRUBIN,TOTAL 0.8 MG/DL (0.3-1.2); BLOOD UREA NITROGEN 16 MG/DL (9-23); CALCIUM LEVEL 8.9 MG/DL (8.3-10.6); CARBON DIOXIDE LEVEL 24 MMOL/L (20-31); CHLORIDE LEVEL 106 MMOL/L (98-107); CHOLESTEROL LEVEL 169 MG/DL (<200); CHOLESTEROL RISK RATIO 2.51 (<5); CREATININE FOR GFR 0.57 MG/DL (0.55-1.30); GLOMERULAR FILTRATION RATE > 60.0 (>39); GLUCOSE, FASTING 84 MG/DL (74-106); HDL CHOLESTEROL 67.2 MG/DL (>40); NON-HDL-C 101.8 MG/DL; POTASSIUM SERUM 4.1 MMOL/L (3.5-5.1); SODIUM LEVEL 140 MMOL/L (136-145); TOTAL PROTEIN 6.8 G/DL (5.7-8.2); TRIGLYCERIDES LEVEL 99 MG/DL (<150)
[2023-01-20 16:19] LABS: TOTAL 25(OH) VITAMIN D 34.7 NG/ML (20.0-100.0)
[2023-01-20 16:20] LABS: THYROID STIMULATING HORMONE 0.701 uIU/ML (0.55-4.78)
[2023-01-20 16:21] LABS: FREE T4 0.98 NG/DL (0.89-1.76)
== END ==
LOC: M PLALAB 13:01
PROVIDERS: ATTEND Nurse Practitioner Adult Health
DX: E78.2 Mixed hyperlipidemia (principal); I10 Essential (primary) hypertension; E55.9 Vitamin D deficiency, unspecified; Z79.899 Other long term (current) drug therapy

== ENCOUNTER → 2023-02-01 | Outpatient (CLI) | payer MEDICARE, OTHER | LOC: M RAD 14:42 | PROVIDERS: ATTEND Nurse Practitioner Adult Health | DX: R01.1 Cardiac murmur, unspecified (principal) ==

== ENCOUNTER → 2023-02-07 | Outpatient (REF) | payer MEDICARE, OTHER ==
[2023-02-07 20:05] LABS: APPEARANCE, URINE HAZY (CLEAR); BACTERIA, URINE AUTO NEGATIVE (NEGATIVE); BILIRUBIN, URINE AUTO NEGATIVE (NEGATIVE); BLOOD, URINE BLOOD 1+ (NEGATIVE); COLOR, URINE YELLOW (YELLOW); GLUCOSE, URINE (UA) AUTO NEGATIVE (NEGATIVE); KETONE, URINE AUTO NEGATIVE (NEGATIVE); LEUKOCYTE ESTERASE, URINE AUTO NEGATIVE (NEGATIVE); NITRITE, URINE AUTO NEGATIVE (NEGATIVE); PROTEIN, URINE AUTO NEGATIVE (NEGATIVE); RBC, URINE AUTO 3 /HPF (0-3); SPECIFIC GRAVITY URINE AUTO 1.013 (1.002-1.035); SQUAMOUS EPITHELIAL CELL UR AU 0 /HPF (0-6); UROBILINOGEN, URINE AUTO 0.2 mg/dL (0.0-2.0); WBC, URINE AUTO 0 /HPF (0-3)
== END ==
LOC: M SMT 17:07
PROVIDERS: ATTEND Urology
DX: R31.29 Other microscopic hematuria (principal)

== ENCOUNTER → 2023-02-15 | Outpatient (CLI) | payer MEDICARE, OTHER | LOC: M PLAIMG 16:06 | PROVIDERS: ATTEND Urology | DX: K59.00 Constipation, unspecified (principal); M41.86 Other forms of scoliosis, lumbar region ==

== ENCOUNTER 2023-03-24 12:00 | Day surgery (SDC) | payer MEDICARE ==
[~2023-03-24] VITALS: Ht 147.3 cm; Wt 76.9 kg
[~2023-03-24 12:00] MED LIST changes: +MELA5TAB11 PO
[2023-03-24] MEDS ORDERED: LR 1,000 ML IV SCH ×3 (12:25→16:35)
[2023-03-24 12:39] LABS: HEMATOCRIT 43.9 % (36.0-47.0); HEMOGLOBIN 14.5 g/dl (12.0-15.5); MEAN CORPUSCULAR HEMOGLOBIN 29.8 pg (27.0-33.0); MEAN CORPUSCULAR VOLUME 90.1 fl (80.0-96.0); PLATELET COUNT, AUTOMATED 245 10^3/uL (150-450); RED BLOOD COUNT 4.87 10^6/uL (4.00-5.40); WHITE BLOOD COUNT 6.4 10^3/uL (4.0-10.0)
[2023-03-24] MEDS ORDERED: ONDANSETRON 4MG 2ML VIAL As Ordered ONE (14:03)
[2023-03-24] MEDS ORDERED: KETOROLAC 60MG 2ML VIAL As Ordered ONE (14:03)
[2023-03-24] MEDS ORDERED: propofoL 200 MG/20 ML VIAL As Ordered ONE (14:03)
[2023-03-24] MEDS ORDERED: LIDOCAINE 2% 100MG/5ML SDV (FOR ANES.) As Ordered ONE (14:03)
[2023-03-24] MEDS ORDERED: fentaNYL 100 MCG/2 ML INJECTION As Ordered ONE (14:03)
[2023-03-24] MEDS ORDERED: KETAMINE HCL 200MG/20ML VIAL As Ordered ONE (14:07)
[2023-03-24] MEDS ORDERED: HYDROMORPHONE HCL 0.5 MG/ 0.5 ML SYRINGE IV PRN (14:45)
[2023-03-24] MEDS ORDERED: ONDANSETRON 4MG 2ML VIAL IV PRN (14:45)
[2023-03-24] MEDS ORDERED: oxyCODONE 5MG TAB PO PRN (14:45)
[2023-03-24] MEDS ORDERED: fentaNYL 100 MCG/2 ML INJECTION IV PRN (14:45)
[2023-03-24 15:50] VITALS: BP 148/83; TEMP 97.3; O2SAT 96
[2023-03-24] MEDS ORDERED: ACETAMINOPHEN 500 MG TAB PO ONE (16:35)
== END 2023-03-24 16:30 | disposition home or self-care (01) ==
LOC: M SDC 12:00
PROVIDERS: ATTEND Specialist
DX: C54.1 Malignant neoplasm of endometrium (principal); N95.0 Postmenopausal bleeding; I25.2 Old myocardial infarction; G47.30 Sleep apnea, unspecified; Z88.1 Allergy status to other antibiotic agents; Z88.0 Allergy status to penicillin; Z79.899 Other long term (current) drug therapy
CPT/HCPCS: 36415; 58558; 85027; 88305; J1100; J1885; J2405; J3010

== ENCOUNTER → 2023-04-21 | Outpatient (CLI) | payer MEDICARE, OTHER ==
[2023-04-21 15:03] LABS: BLOOD UREA NITROGEN 19 MG/DL (9-23); CREATININE FOR GFR 0.69 MG/DL (0.55-1.30); GLOMERULAR FILTRATION RATE > 60.0 (>39)
== END ==
LOC: M LAB 14:07
PROVIDERS: ATTEND Obstetrics & Gynecology Gynecologic Oncology
DX: C54.1 Malignant neoplasm of endometrium (principal)

== ENCOUNTER → 2023-04-24 | Outpatient (CLI) | payer MEDICARE, OTHER ==
[2023-04-24 16:20] LABS: BASO # 0.1 10^3/uL (0.0-0.2); BASO % 0.8 % (0.0-1.0); EOS # 0.1 10^3/uL (0.0-0.5); EOS % 1.8 % (0.0-3.0); HEMATOCRIT 40.9 % (36.0-47.0); HEMOGLOBIN 13.3 g/dl (12.0-15.5); LYMPH # 1.7 10^3/uL (1.5-5.0); LYMPH % 25.3 % (24.0-44.0); MEAN CORPUSCULAR HEMOGLOBIN 29.9 pg (27.0-33.0); MEAN CORPUSCULAR HGB CONC 32.5 g/dl (32.0-36.5); MEAN CORPUSCULAR VOLUME 91.9 fl (80.0-96.0); MONO # 0.6 10^3/uL (0.0-0.8); MONO % 9.1 % (2.0-8.0); NEUTROPHILS # 4.1 10^3/uL (1.5-8.5); NEUTROPHILS % 62.7 % (36.0-66.0); PLATELET COUNT, AUTOMATED 242 10^3/uL (150-450); RED BLOOD COUNT 4.45 10^6/uL (4.00-5.40); WHITE BLOOD COUNT 6.5 10^3/uL (4.0-10.0)
== END ==
LOC: M PLALAB 12:28
PROVIDERS: ATTEND Family Medicine
DX: Z01.818 Encounter for other preprocedural examination (principal)

== ENCOUNTER → 2023-04-26 | Outpatient (CLI) | payer MEDICARE, OTHER ==
[~2023-04-26] MED LIST changes: +GASTROGRAFIN SOLUTION 30ML As Ordered ONE; +ISOVUE-370 76% 100ML VIAL As Ordered ONE
== END ==
LOC: M RAD 11:58
PROVIDERS: ATTEND Obstetrics & Gynecology Gynecologic Oncology
DX: C54.1 Malignant neoplasm of endometrium (principal)
CPT/HCPCS: 74177; Q9963; Q9967

== ENCOUNTER → 2023-05-04 | Outpatient (CLI) | payer MEDICARE, OTHER ==
[~2023-05-04] MED LIST changes: -GASTROGRAFIN SOLUTION 30ML As Ordered ONE; -ISOVUE-370 76% 100ML VIAL As Ordered ONE
== END ==
LOC: M CARPUL 13:42
PROVIDERS: ATTEND Family Medicine
DX: J98.11 Atelectasis (principal); R91.8 Other nonspecific abnormal finding of lung field; I08.0 Rheumatic disorders of both mitral and aortic valves

== ENCOUNTER 2023-06-12 08:18 | Emergency (ER) | payer MEDICARE, OTHER ==
[~2023-06-12] VITALS: Ht 147.3 cm; Wt 71.4 kg
[2023-06-12 09:12] LABS: HEMATOCRIT 40.2 % (36.0-47.0); HEMOGLOBIN 13.5 g/dl (12.0-15.5); MEAN CORPUSCULAR HEMOGLOBIN 29.5 pg (27.0-33.0); MEAN CORPUSCULAR HGB CONC 33.6 g/dl (32.0-36.5); PLATELET COUNT, AUTOMATED 195 10^3/uL (150-450); RED BLOOD COUNT 4.57 10^6/uL (4.00-5.40); WHITE BLOOD COUNT 5.3 10^3/uL (4.0-10.0)
[2023-06-12] MEDS ORDERED: NITROFURANTOIN (MACROBID) 100 MG CAP PO ONE ×2 (10:20)
[2023-06-12] MEDS ORDERED: MACR100C43 PO (10:30)
[2023-06-12 11:30] VITALS: BP 134/62; TEMP 98.2; O2SAT 95
== END 2023-06-12 11:32 | disposition home or self-care (01) ==
LOC: M ED 08:18
DX: N39.0 Urinary tract infection, site not specified (principal); Z87.891 Personal history of nicotine dependence; Z88.0 Allergy status to penicillin; Z88.1 Allergy status to other antibiotic agents

== ENCOUNTER 2023-06-19 11:06 | Emergency (ER) | payer MEDICARE, OTHER ==
[~2023-06-19] VITALS: Ht 147.3 cm; Wt 72.0 kg
[~2023-06-19 11:06] MED LIST changes: +MACR100C43 PO
[2023-06-19 11:08] VITALS: BP 177/74; TEMP 96.6; O2SAT 100
[2023-06-19 12:15] LABS: HEMATOCRIT 40.8 % (36.0-47.0); HEMOGLOBIN 13.3 g/dl (12.0-15.5); MEAN CORPUSCULAR HEMOGLOBIN 28.8 pg (27.0-33.0); MEAN CORPUSCULAR HGB CONC 32.6 g/dl (32.0-36.5); MEAN CORPUSCULAR VOLUME 88.3 fl (80.0-96.0); PLATELET COUNT, AUTOMATED 276 10^3/uL (150-450); RED BLOOD COUNT 4.62 10^6/uL (4.00-5.40); WHITE BLOOD COUNT 9.4 10^3/uL (4.0-10.0)
[2023-06-19 12:27] LABS: INR 1.03; PROTHROMBIN TIME 13.2 SECONDS (12.5-14.5)
[2023-06-19] MEDS ORDERED: CEFD300C PO (12:29)
[2023-06-19 12:41] LABS: BLOOD UREA NITROGEN 14 MG/DL (9-23); CARBON DIOXIDE LEVEL 28 MMOL/L (20-31); CHLORIDE LEVEL 108 MMOL/L (98-107); CREATININE FOR GFR 0.59 MG/DL (0.55-1.30); GLOMERULAR FILTRATION RATE > 60.0 (>39); GLUCOSE, FASTING 90 MG/DL (74-106); POTASSIUM SERUM 4.5 MMOL/L (3.5-5.1); SODIUM LEVEL 141 MMOL/L (136-145)
[2023-06-19] MEDS ORDERED: CEFDINIR 300 MG CAP (OMNICEF) PO ONE ×2 (12:55)
== END 2023-06-19 13:02 | disposition home or self-care (01) ==
LOC: M ED 11:06
DX: N39.0 Urinary tract infection, site not specified (principal); E78.5 Hyperlipidemia, unspecified; G47.33 Obstructive sleep apnea (adult) (pediatric); Z87.442 Personal history of urinary calculi; Z88.0 Allergy status to penicillin; Z88.1 Allergy status to other antibiotic agents; Z79.2 Long term (current) use of antibiotics; Z79.899 Other long term (current) drug therapy

== ENCOUNTER → 2023-07-28 | Outpatient (CLI) | payer MEDICARE, OTHER ==
[~2023-07-28] MED LIST changes: +CEFD300C PO
[2023-07-28 12:50] LABS: BASO % 0.5 % (0.0-1.0); EOS # 0.2 10^3/uL (0.0-0.5); EOS % 5.2 % (0.0-3.0); HEMATOCRIT 39.8 % (36.0-47.0); HEMOGLOBIN 13.1 g/dl (12.0-15.5); LYMPH # 1.1 10^3/uL (1.5-5.0); LYMPH % 26.8 % (24.0-44.0); MEAN CORPUSCULAR HEMOGLOBIN 29.2 pg (27.0-33.0); MEAN CORPUSCULAR HGB CONC 32.9 g/dl (32.0-36.5); MEAN CORPUSCULAR VOLUME 88.8 fl (80.0-96.0); MONO # 0.4 10^3/uL (0.0-0.8); MONO % 9.9 % (2.0-8.0); NEUTROPHILS # 2.3 10^3/uL (1.5-8.5); NEUTROPHILS % 57.4 % (36.0-66.0); PLATELET COUNT, AUTOMATED 206 10^3/uL (150-450); RED BLOOD COUNT 4.48 10^6/uL (4.00-5.40); WHITE BLOOD COUNT 4.1 10^3/uL (4.0-10.0)
[2023-07-28 13:19] LABS: ALBUMIN 3.3 G/DL (3.2-5.2); ALKALINE PHOSPHATASE 58 U/L (46-116); ALT/SGPT 14 U/L (7.0-40); AST/SGOT 12 U/L (<34); BILIRUBIN,TOTAL 0.6 MG/DL (0.3-1.2); BLOOD UREA NITROGEN 12 MG/DL (9-23); CALCIUM LEVEL 9.1 MG/DL (8.3-10.6); CARBON DIOXIDE LEVEL 28 MMOL/L (20-31); CHLORIDE LEVEL 106 MMOL/L (98-107); CHOLESTEROL LEVEL 176 MG/DL (<200); CHOLESTEROL RISK RATIO 2.78 (<5); CREATININE FOR GFR 0.58 MG/DL (0.55-1.30); GLOMERULAR FILTRATION RATE > 60.0 (>39); GLUCOSE, FASTING 87 MG/DL (74-106); HDL CHOLESTEROL 63.3 MG/DL (>40); LDL CHOLESTEROL 86.9 MG/DL (<100); NON-HDL-C 112.7 MG/DL; POTASSIUM SERUM 4.2 MMOL/L (3.5-5.1); SODIUM LEVEL 138 MMOL/L (136-145); TOTAL PROTEIN 6.7 G/DL (5.7-8.2); TRIGLYCERIDES LEVEL 129 MG/DL (<150)
[2023-07-28 13:22] LABS: FREE T4 0.98 NG/DL (0.89-1.76); THYROID STIMULATING HORMONE 0.767 uIU/ML (0.55-4.78)
== END ==
LOC: M LAB 11:47
PROVIDERS: ATTEND Family Medicine
DX: I35.8 Other nonrheumatic aortic valve disorders (principal); E78.2 Mixed hyperlipidemia; K21.9 Gastro-esophageal reflux disease without esophagitis

== ENCOUNTER → 2023-08-09 | Outpatient (REF) | payer MEDICARE, OTHER ==
[2023-08-09 18:09] LABS: APPEARANCE, URINE CLEAR (CLEAR); BACTERIA, URINE AUTO NEGATIVE (NEGATIVE); BILIRUBIN, URINE AUTO NEGATIVE (NEGATIVE); BLOOD, URINE BLOOD 2+ (NEGATIVE); COLOR, URINE STRAW (YELLOW); GLUCOSE, URINE (UA) AUTO NEGATIVE (NEGATIVE); KETONE, URINE AUTO NEGATIVE (NEGATIVE); LEUKOCYTE ESTERASE, URINE AUTO NEGATIVE (NEGATIVE); NITRITE, URINE AUTO NEGATIVE (NEGATIVE); PROTEIN, URINE AUTO NEGATIVE (NEGATIVE); RBC, URINE AUTO 0 /HPF (0-3); SPECIFIC GRAVITY URINE AUTO 1.008 (1.002-1.035); SQUAMOUS EPITHELIAL CELL UR AU 0 /HPF (0-6); UROBILINOGEN, URINE AUTO 0.2 mg/dL (0.0-2.0); WBC, URINE AUTO 0 /HPF (0-3)
== END ==
LOC: M SMT 17:05
PROVIDERS: ATTEND Urology
DX: R31.29 Other microscopic hematuria (principal)

== ENCOUNTER → 2023-08-31 | Outpatient (CLI) | payer MEDICARE, OTHER | LOC: M WHC 14:33 | PROVIDERS: ATTEND Nurse Practitioner Adult Health | DX: Z12.31 Encounter for screening mammogram for malignant neoplasm of breast (principal) ==

== ENCOUNTER → 2023-09-08 | Outpatient (REF) | payer MEDICARE, OTHER | LOC: M SMT 15:13 | PROVIDERS: ATTEND Urology | DX: R82.89 Other abnormal findings on cytological and histological examination of urine (principal) ==

== ENCOUNTER → 2023-09-08 | Outpatient (CLI) | payer MEDICARE, OTHER | LOC: M RAD 14:39 | PROVIDERS: ATTEND Nurse Practitioner Adult Health | DX: D49.89 Neoplasm of unspecified behavior of other specified sites (principal) ==

== ENCOUNTER → 2023-12-04 | Outpatient (CLI) | payer MEDICARE, OTHER | LOC: M RAD 13:58 | PROVIDERS: ATTEND Family Medicine | DX: N28.1 Cyst of kidney, acquired (principal) ==

== ENCOUNTER → 2024-01-31 | Outpatient (CLI) | payer MEDICARE, OTHER ==
[2024-01-31 12:22] LABS: HEMOGLOBIN A1c 5.1 % (4.0-6.0)
[2024-02-01 12:43] LABS: INSULIN TOTAL2 11.3 uIU/mL (<=18.4)
== END ==
LOC: M LAB 11:38
PROVIDERS: ATTEND Family Medicine
DX: E66.9 Obesity, unspecified (principal); Z79.899 Other long term (current) drug therapy

== ENCOUNTER → 2024-02-09 | Outpatient (REF) | payer MEDICARE, OTHER ==
[2024-02-09 19:21] LABS: APPEARANCE, URINE CLEAR (CLEAR); BACTERIA, URINE AUTO NEGATIVE (NEGATIVE); BILIRUBIN, URINE AUTO NEGATIVE (NEGATIVE); BLOOD, URINE BLOOD 2+ (NEGATIVE); COLOR, URINE YELLOW (YELLOW); GLUCOSE, URINE (UA) AUTO NEGATIVE (NEGATIVE); KETONE, URINE AUTO NEGATIVE (NEGATIVE); LEUKOCYTE ESTERASE, URINE AUTO NEGATIVE (NEGATIVE); NITRITE, URINE AUTO NEGATIVE (NEGATIVE); PROTEIN, URINE AUTO NEGATIVE (NEGATIVE); RBC, URINE AUTO 7 /HPF (0-3); SPECIFIC GRAVITY URINE AUTO 1.013 (1.002-1.035); SQUAMOUS EPITHELIAL CELL UR AU 0 /HPF (0-6); TRANSITIONAL EPITHELIAL AUTO <1 /HPF; UROBILINOGEN, URINE AUTO 0.2 mg/dL (0.0-2.0); WBC, URINE AUTO 0 /HPF (0-3)
== END ==
LOC: M SMT 17:13
PROVIDERS: ATTEND Urology
DX: N28.1 Cyst of kidney, acquired (principal)

== ENCOUNTER → 2024-03-11 | Outpatient (CLI) | payer MEDICARE, OTHER | LOC: M RAD 13:42 | PROVIDERS: ATTEND Internal Medicine Nephrology | DX: D41.02 Neoplasm of uncertain behavior of left kidney (principal) ==

== ENCOUNTER → 2024-07-23 | Outpatient (CLI) | payer MEDICARE, OTHER ==
[2024-07-23 13:04] LABS: ALBUMIN 3.4 G/DL (3.2-5.2); ALKALINE PHOSPHATASE 62 U/L (35-104); ALT/SGPT 16 U/L (7.0-40); AST/SGOT 13 U/L (<34); BILIRUBIN,TOTAL 0.7 MG/DL (0.3-1.2); BLOOD UREA NITROGEN 17 MG/DL (9-23); CARBON DIOXIDE LEVEL 26 MMOL/L (20-31); CHLORIDE LEVEL 106 MMOL/L (98-107); CHOLESTEROL LEVEL 198 MG/DL (<200); CHOLESTEROL RISK RATIO 3.28 (<5); GLOMERULAR FILTRATION RATE > 60.0 (>39); GLUCOSE, FASTING 85 MG/DL (74-106); HDL CHOLESTEROL 60.2 MG/DL (>40); LDL CHOLESTEROL 104.2 MG/DL (<100); NON-HDL-C 137.8 MG/DL; POTASSIUM SERUM 4.3 MMOL/L (3.5-5.1); SODIUM LEVEL 140 MMOL/L (136-145); TOTAL PROTEIN 6.9 G/DL (5.7-8.2); TRIGLYCERIDES LEVEL 168 MG/DL (<150)
[2024-07-23 13:07] LABS: HEMOGLOBIN A1c 5.1 % (4.0-6.0)
[2024-07-24 14:47] LABS: INSULIN TOTAL2 11.8 uIU/mL (<=18.4)
== END ==
LOC: M LAB 11:51
PROVIDERS: ATTEND Nurse Practitioner Adult Health
DX: E78.2 Mixed hyperlipidemia (principal); E66.9 Obesity, unspecified

== ENCOUNTER → 2024-07-23 | Outpatient (CLI) | payer MEDICARE, OTHER ==
[2024-07-23 13:02] LABS: ALBUMIN 3.4 G/DL (3.2-5.2); ALKALINE PHOSPHATASE 62 U/L (35-104); ALT/SGPT 16 U/L (7.0-40); AST/SGOT 13 U/L (<34); BILIRUBIN,TOTAL 0.7 MG/DL (0.3-1.2); BLOOD UREA NITROGEN 17 MG/DL (9-23); CALCIUM LEVEL 8.9 MG/DL (8.3-10.6); CARBON DIOXIDE LEVEL 26 MMOL/L (20-31); CHLORIDE LEVEL 105 MMOL/L (98-107); GLOMERULAR FILTRATION RATE > 60.0 (>39); GLUCOSE, FASTING 86 MG/DL (74-106); POTASSIUM SERUM 4.3 MMOL/L (3.5-5.1); SODIUM LEVEL 142 MMOL/L (136-145); TOTAL PROTEIN 6.9 G/DL (5.7-8.2)
== END ==
LOC: M LAB 11:53
PROVIDERS: ATTEND Nurse Practitioner
DX: R10.2 Pelvic and perineal pain (principal); C54.1 Malignant neoplasm of endometrium

== ENCOUNTER → 2024-08-07 | Outpatient (CLI) | payer MEDICARE, OTHER ==
[~2024-08-07] MED LIST changes: +ISOVUE-370 76% 100ML VIAL As Ordered ONE
== END ==
LOC: M RAD 16:36
PROVIDERS: ATTEND Nurse Practitioner
DX: C54.1 Malignant neoplasm of endometrium (principal); R10.2 Pelvic and perineal pain
CPT/HCPCS: 71260; 74177; Q9967

== ENCOUNTER → 2025-03-13 | Outpatient (CLI) | payer MEDICARE, OTHER ==
[~2025-03-13] MED LIST changes: +ISOVUE-370 76% 100 ML VIAL As Ordered ONE; -ISOVUE-370 76% 100ML VIAL As Ordered ONE
== END ==
LOC: M RAD 15:32
PROVIDERS: ATTEND Internal Medicine Nephrology
DX: D41.02 Neoplasm of uncertain behavior of left kidney (principal)
CPT/HCPCS: 74170; Q9967

== ENCOUNTER → 2025-05-06 | Outpatient (REF) | payer MEDICARE, OTHER ==
[~2025-05-06] MED LIST changes: -ISOVUE-370 76% 100 ML VIAL As Ordered ONE
== END ==
LOC: M LAB REF 17:14
PROVIDERS: ATTEND Nurse Practitioner Adult Health
DX: R30.0 Dysuria (principal)